=== PATIENT | male | born 1990 | race American Indian/Alaskan Native ===

== ENCOUNTER 2019-06-25 20:57 | Emergency (ER) | payer SELFPAY ==
--- NOTE | 2019-06-26 00:31 | Emergency Department Report ---
Chief Complaint: Skin Rash Stated Complaint: BODY RASH Time Seen by Provider: 06/25/19 23:35 - HPI History of Present Illness: Patient is a 29-year-old male presents emergency room with complaints of a diffuse rash that began 2 days ago. He states that the rash is itching. He denies any new soaps, detergents, lotions, foods, drinks. He denies any fever, nausea, vomiting, diarrhea, shortness of breath, chest pain. He denies anyone else with the same rash. He states that he only took 1 tablet of Benadryl. He has a past medical history of asthma. He denies any allergies to medications. Vitals are normal on exam: Non toxic appearing, no acute distress atraumatic, normocephalic normal appearance of the eyes, PERRL, EOMI, no periorbital edema or ecchymosis moist mucus membranes, no angioedema regular heart rate and rhythm, no gallops, no rubs, no murmurs breath sounds are clear bilaterally, no w/r/r, no stridor, no respiratory distress A&O x4, no focal neuro deficit skin is warm, dry,small erythematous papules present diffusely, no blistering, no necrosis, no skin denuding, no drainage, no exocoriation, there is no papules present in the webs of the fingers or on the palmar surface Examination consistent with contact dermatitis No signs of acute allergic reaction or angioedema Discussed [id number] treatment with patient Advised patient to be reexamined by primary care physician Medical screening examination performed and there is no threat to life or limb at this time - Exam Vital Signs: Vital Signs 06/25/19 21:14 Temperature 98.1 F Pulse Rate 63 Respiratory 18 Rate Blood Pressure 121/83 O2 Sat by Pulse 98 Oximetry MSE screening note: Focused history and physical exam performed. Due to findings the following was ordered: ED Disposition for MSE Clinical Impression: Contact dermatitis Qualifiers: Contact dermatitis type: unspecified Contact dermatitis trigger: unspecified trigger Qualified Code(s): L25.9 - Unspecified contact dermatitis, unspecified cause Disposition: MED SCREENING EXAM-LEFT Is pt being admited?: No Does the pt Need Aspirin: No Condition: Stable Instructions: Contact Dermatitis (ED) Additional Instructions: Please use hydrocortisone cream [id number] for the next week. May use Pepcid during the day for itching and use Benadryl when you are at home due to potential for drowsiness. Avoid scratching. Follow-up with a primary care doctor the next 3 to 5 days for reexamination. Return to the emergency room immediately for any new or worsening symptoms. Referrals: LEÓN VANNCAPE [facility] MD SOLA [Primary Care Provider] - 2-3 Days DENNIS BURKS MD [Staff Physician] - 3-5 Days [facility] [Outside] - 3-5 Days Time of Disposition: 00:30 Print Language: [email or web address]
[2019-06-26 00:59] VITALS: BP 118/77
== END 2019-06-26 00:30 | disposition left against medical advice (07) ==
LOC: ED 20:57
DX: L25.8 Unspecified contact dermatitis due to other agents (principal)
CPT/HCPCS: 99282